=== PATIENT | male | born 1965 | race Two or more races ===

== ENCOUNTER 2016-12-31 08:27 | Observation (INO) | payer OTHER ==
[~2016-12-31 08:27] MED LIST: Buffered Lidocaine 1% SYR 3ML* 3 ML/SYR SYRINGE INTRADERM ONE; Dexamethasone IV* 4 MG/ML 1 ML (4 MG) IV SLOW PU ONE; Famotidine IV* 10 MG/ML 2 ML (20 mg) IV ONE
[2016-12-31] MEDS ORDERED: Famotidine IV* 10 MG/ML 2 ML (20 mg) ONE (08:42)
[2016-12-31] MEDS ORDERED: Dexamethasone IV* 4 MG/ML 1 ML (4 MG) ONE (08:42)
[2016-12-31] MEDS ORDERED: ceFAZolin 2 GM PREMIX (*) 2 GM/50 ML BAG IVPB ONE (08:42)
[2016-12-31] MEDS ORDERED: Propofol* 10 MG/ML 20 ML BTL IV PUSH ONE (10:05)
[2016-12-31] MEDS ORDERED: Lidocaine 2% PF * 5 ML VIAL ONE (10:05)
[2016-12-31] MEDS ORDERED: Rocuronium* 10 MG/ML VIAL ONE (10:06)
[2016-12-31] MEDS ORDERED: fentaNYL* 50 MCG/ML 5 ML VIAL (250 MCG VIAL) ONE (10:06)
[2016-12-31] MEDS ORDERED: Bacitracin IV* 50,000 UNITS INJ ONE (10:12)
[2016-12-31] MEDS ORDERED: Lidocain 1% EPI 1:100,000 * 30 ML MDV ONE (10:12)
[2016-12-31] MEDS ORDERED: Thrombin 5,000 UNITS* 1 APPLIC KIT - topical use - TOPICAL ONE (10:12)
[2016-12-31] MEDS ORDERED: KETAMINE HCL* 50 MG/ML 10 ML VIAL ONE (10:49)
[2016-12-31] MEDS ORDERED: Phenylephrine IV* 40 MCG/ML 10 ML SYRINGE ONE (10:51)
[2016-12-31] MEDS ORDERED: PROCHLORPERAZINE INJ 5 MG/ML 2 ML VIAL IV PRN (11:05)
[2016-12-31] MEDS ORDERED: Phenylephrine INJ* 10 MG/ML 1 ML VIAL (10 MG) ONE (11:12)
[2016-12-31] MEDS ORDERED: Ondansetron INJ* 2 MG/ML VIAL ONE (11:39)
[2016-12-31] MEDS ORDERED: EPHEDrine (Pressors)* 50 MG/ML VIAL ONE (11:39)
[2016-12-31] MEDS ORDERED: Magnesium Hydroxide LIQ* 30 ML UDC PO PRN (11:54)
[2016-12-31] MEDS ORDERED: Acetaminophen TAB* 325 MG PO PRN (11:54)
[2016-12-31] MEDS ORDERED: fentaNYL* 50 MCG/ML 2 ML VIAL (100 MCG VIAL) ONE ×2 (12:28→12:37)
[2016-12-31] MEDS: fentaNYL* 50 MCG/ML 2 ML VIAL (100 MCG VIAL) IV PRN ×4 (12:29→13:08)
[2016-12-31] MEDS ORDERED: Morphine INJ* 10 MG/ML 1 ML CARPUJECT ONE (12:37)
[2016-12-31] MEDS: Morphine INJ* 2 MG/ML 1 ML CARPUJECT IV PRN ×2 (12:39→13:02)
[2016-12-31] MEDS: oxyCODONE/Acetamin 5/325 MG* TAB PO PRN ×2 (12:44→12:51)
[2016-12-31] MEDS ORDERED: oxyCODONE/Acetamin 5/325 MG* TAB ONE (12:44)
[2016-12-31] MEDS ORDERED: HYDROmorphone INJ* 1 MG/ML CARPUJECT SYRINGE ONE ×3 (13:17→14:25)
[2016-12-31] MEDS: HYDROmorphone INJ* 1 MG/ML CARPUJECT SYRINGE IV SLOW PU PRN ×6 (13:19→15:04)
[2016-12-31] MEDS ORDERED: Lisinopril TAB* 10 MG PO ONE (14:00)
--- NOTE | 2016-12-31 14:19 | RAD ---
HISTORY: Posterior cervical discectomy COMPARISONS: November 24, 2016 VIEWS: 1, portable crosstable view of the cervical spine performed for localization during spinal surgery FINDINGS: A lateral crosstable view of the cervical spine performed intraoperatively at 11:11 AM demonstrates a metallic probe opposite of the C5 spinous process, counting from C2. IMPRESSION: LIMITED PORTABLE VIEW OF THE CERVICAL SPINE FOR LOCALIZATION DURING SPINAL SURGERY.
[2016-12-31] MEDS ORDERED: Metoprolol Tartrate IV* 1 MG/ML 5 ML VIAL ONE (14:36)
[2016-12-31] MEDS: HYDROcodone/ACETAMIN 5-325 MG* 1 TAB PO PRN ×2 (18:45→22:37)
[2016-12-31] MEDS ORDERED: QUEtiapine TAB* 300 MG PO SCH (21:00)
[2017-01-01] MEDS: HYDROcodone/ACETAMIN 5-325 MG* 1 TAB PO PRN ×2 (02:49→06:50)
--- NOTE | 2017-01-01 07:46 | PN ---
Progress Note - Progress Note SOAP: Subjective: []POD # 1 Arm pain relieved Complains of incisional pain Objective: []Minimal drain output Motor intact Assessment: [] Satis post op course Plan: []D/C today D/C instructions given
[2017-01-01 07:51] VITALS: BP 142/81
[2017-01-01] MEDS ORDERED: Nicotine PATCH 21 MG/24 HR* PATCH TRANSDERM SCH (09:00)
[2017-01-01] MEDS ORDERED: Lisinopril TAB* 10 MG PO SCH (09:00)
--- NOTE | 2017-01-01 13:31 | OP ---
OPERATIVE REPORT: DATE OF OPERATION: 12/31/16 DATE OF : 65 SURGEON: Ion Yost MD VERMIN EXTERMINATOR: ZBIGNIEW Kay ANESTHESIA: General. PRE-OP DIAGNOSIS: Herniated nucleus pulposus, C6-7 on the left. POST-OP DIAGNOSIS: Herniated nucleus pulposus, C6-7 on the left. OPERATIVE PROCEDURE: Posterior cervical partial hemilaminectomy, C6-7 on the left with diskectomy, C6-7 on the left with microdissection. DESCRIPTION OF PROCEDURE: After satisfactory general anesthesia was obtained, the patient was place d on the operating table in the prone position with the chest supported on chest rolls and the neck maintained in slight neck flexion utilizing Thompson headrest. The posterior cervical region was th en clipped, prepped, and draped in a sterile manner for posterior cervical laminectomy and a skin in cision outlined from C6 to C7. This incision was infiltrated with 1% Xylocaine with epinephrine, af ter which it was turned down sharply to the level of the cervical fascia. The fascia was divided al mindi the spinous processes from C5 to C7 and the paraspinal musculature stripped away from the left s terrance utilizing the periosteal elevator and monopolar cautery. An intraoperative x-ray was obtained v erifying the localization of the C5 spinous process, after which a partial hemilaminectomy was evelia ed out at the C6-7 level, utilizing a combination of the Midax Yves drill and Kerrison rongeurs. Lig amentum flavum was removed with the Kerrison and a generous foraminotomy carried out over the C7 ner ve root. At this point of the procedure, the operating microscope was brought into the field and th e remainder of the procedure was done under microscopic visualization. Utilizing microdissection, a bundant epidural venous structures were coagulated and divided. Projecting into the shoulder region of the exposure was a subcapsular disk herniation. An opening was made in the posterior longitudin al ligament and multiple fragments of disk were removed from beneath the nerve root. There was also noted to be a component of bony spur at this level as well. At the end of the decompression, a ner ve root will go ahead readily with the C7 nerve root. It was felt that a satisfactory decompression had been achieved. After assuring adequate hemostasis, the wound was thoroughly irrigated after wh ich a piece of Gelfoam was placed over the laminectomy defect. A drain was placed in the epidural s pace and tunneled out towards the left side. The fascia was then reapproximated with 0 Vicryl sutur e, the subcutaneous tissue was closed with 2 and 3-0 Vicryl suture and the skin closed with skin cli ps. The estimated blood loss was less than 50 cc and the final sponge, padding, and needle counts we re correct. The patient was taken to the recovery room, extubated, and in stable condition. [id number]/[facility] #: [id number]
[2017-01-01] MEDS ORDERED: Nicotine Patch Removal NOTE PATCH OFF SCH (21:00)
--- NOTE | 2017-01-13 01:47 | DS ---
DISCHARGE SUMMARY: DATE OF ADMISSION: 12/31/16 DATE OF DISCHARGE: 01/01/17 DISCHARGE DIAGNOSES: 1. Physical disc displacement, C6-C7 on the left. 2. Hypertension. SPECIAL PROCEDURE: Posterior cervical discectomy at C6-C7 on the left. HOSPITAL COURSE: This 51-year-old male was seen in the office with recurrent symptoms of a significant cervical radiculopathy to the left. He failed to improve with conservative treatments and was admitted at this time for elective surgical intervention. On the day of admission, he was taken to surgery where under general anesthesia, a posterior cervical discectomy at C6-C7 on the left operation was carried out. Postoperatively, he was feeling well. Pain is well controlled with oral pain medications. He was eating and drinking without difficulty. He was ambulating independently. On the first postoperative day, he was discharged home to the care of his family. Discharge instructions including wound care and activity level were discussed with the patient and provided. He will be seen in office in approximately 7 to 10 days with followup and staple removal. DISCHARGE MEDICATIONS: Cyclobenzaprine 10 mg one tab by mouth three times daily as needed for pain. ZBIGNIEW CASTLE [id number]/[facility] #: [id number] [facility]
== END 2017-01-01 09:20 | disposition home or self-care (01) ==
LOC: OR 08:27 → SSU 16:00 → UNDOADMOB 16:00
PROVIDERS: ADMIT Neurological Surgery; ATTEND Neurological Surgery
PROC: 01N10ZZ Release Cervical Nerve, Open Approach (ICD-10-PCS; 2016-12-31)
PROC: 0RB30ZZ Excision of Cervical Vertebral Disc, Open Approach (ICD-10-PCS; principal; 2016-12-31 10:00)
DX: M50.123 Cervical disc disorder at C6-C7 level with radiculopathy (principal); I10 Essential (primary) hypertension; Z79.899 Other long term (current) drug therapy; F17.210 Nicotine dependence, cigarettes, uncomplicated
CPT/HCPCS: 72020; 88304; 96374; 96375; A9270-GY; G0378; J0690; J1100; J1170; J2270; J2405; J2704; J3010; J3490

== ENCOUNTER 2019-02-14 11:43 | Day surgery (SDC) | payer BC, OTHER ==
--- NOTE | 2019-02-07 03:28 | HP ---
CC: Dr. Elias Craft, [facility] Office * ADMISSION HISTORY AND PHYSICAL: DATE OF ADMISSION: 02/14/19 ATTENDING SURGEON: Dr. Wayne Argueta * (DICTATED BY ZBIGNIEW VU) CHIEF COMPLAINT: Umbilical hernia. HISTORY OF PRESENT ILLNESS: This is a 53-year-old male who had had what sounds like a longstanding asymptomatic umbilical hernia. Beginning about a year ago, this became larger and symptomatic. 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 He has not had anything to suggest incarceration or strangulation. Pain is limited to the area of the umbilicus and extending somewhat to the superior left of the umbilicus. He has had a prior open left inguinal herniorrhaphy in 2009. He was seen in the office by Dr. Argueta on 07/29/19, at which time exam confirmed the presence of a fat incarcerated tender umbilical hernia. Recommendation was made for repair and Dr. Argueta discussed with him the indications, risks, benefits and alternatives. The patient was unable to have the repair done at that time and deferred it to the present time. He has not had any significant interval symptoms or changes. PAST MEDICAL HISTORY: 1. Hypertension. 2. Osteoarthritis primarily the back and hips. 3. Insomnia. 4. GERD. 5. Anxiety and depression. PAST SURGICAL HISTORY: Previous surgeries have included: 1. Open left inguinal herniorrhaphy with mesh in 2009. 2. Posterior cervical diskectomy in 2017 (he states that he did not improve after the disk surgery). CURRENT MEDICATIONS: 1. Quetiapine 300 mg q.h.s. 2. Bisoprolol/hydrochlorothiazide 5-6.25 two tablets q.a.m. 3. Amlodipine/benazepril 5-20 mg 2 tablets q.a.m. 4. Omeprazole 20 mg q. day. 5. Gabapentin 100 mg q. day. 6. Paroxetine 10 mg q. day. 7. Aleve 2 tablets once daily p.r.n. pain (does not use daily). DRUG ALLERGIES: None known. FAMILY HISTORY: Negative for anesthesia problems, bleeding, or clotting disorders, though the patient has not had much contact with his family in recent years. SOCIAL HISTORY: The patient lives with his girlfriend. He is employed as a toolroom machinist/polisher. He is a smoker one-half pack per day for the past 38 years. We did discuss the benefits of smoking cessation. He drinks on average 3 to 4 beers per day, but sometimes as much as 18 on hot summer days. He occasionally smokes marijuana recreationally and was recently approved for medical marijuana though has not initiated that. He denies any other recreational drug use. REVIEW OF SYSTEMS: General: No recent constitutional symptoms or acute illnesses though he does state that his food intake has been less because of increased symptoms related to the hernia and he estimates weight loss of 5 to 6 pounds. HEENT: Some chronic dental problems but nothing acute. Cardiovascular : No recent history of chest pain. He did undergo a stress echo possibly 8 to 10 years ago, which he states was a normal study. Respiratory: No history of shortness of breath or chronic cough. GI: GERD symptoms, well controlled by dietary measures and omeprazole. No lower GI symptoms. He has not had any screening for colorectal cancer though is encouraged to discuss this with his PCP. : No problems reported. Endocrine: No diabetes or thyroid dysfunction. PHYSICAL EXAMINATION GENERAL: Well-nourished, well-developed male, in no acute distress. VITAL SIGNS: Height 5 feet 11 inches, weight 225 pounds, blood pressure 150/90 , pulse 72, respirations 18. HEENT: Pupils equal, round, and reactive. EOMs intact. No conjunctival pallor. Oropharynx: Teeth in fairly good repair. No intraoral lesions. NECK: No lymphadenopathy, thyromegaly, or masses. No supraclavicular lymphadenopathy. LUNGS: Clear to auscultation. No wheezes. HEART: Regular rate and rhythm. No murmur noted. ABDOMEN: A small visible umbilical bulge. The abdomen is soft, nontender with the exception some mild tenderness to deep palpation at the umbilicus, where there is a 1 to 2 cm defect by palpation, which feels semi-reducible. No other palpable masses. No obvious inguinal hernias. No palpable hepatosplenomegaly. GENITALIA: Not examined. RECTAL: Not done. BACK: No spinous process or CVA tenderness. EXTREMITIES: No edema. NEUROLOGICAL: Grossly intact. SKIN: Warm and dry. No suspicious rashes or lesions noted. IMPRESSION: Umbilical hernia. PLAN: Open repair of umbilical hernia with mesh. SOHEILA NUNEZ, ZBIGNIEW [id number]/[facility] #: [id number] [facility] HOSPITALAshish
[~2019-02-14 11:43] MED LIST changes: -Buffered Lidocaine 1% SYR 3ML* 3 ML/SYR SYRINGE INTRADERM ONE; +Buffered Lidocaine 1% SYRIN* 1 ML/SYRINGE INTRADERM ONE; +Lactated Ringers 1000 ML Bag* 1,000 ML IV SCH
[2019-02-14] MEDS ORDERED: Dexamethasone IV* 4 MG/ML 1 ML (4 MG) ONE (11:57)
[2019-02-14] MEDS ORDERED: Buffered Lidocaine 1% SYRIN* 1 ML/SYRINGE INTRADERM ONE (11:58)
[2019-02-14] MEDS ORDERED: ceFAZolin 2 GM in NS PREMIX(*) 2 GM/100 ML BAG IVPB ONE (11:58)
[2019-02-14] MEDS ORDERED: Famotidine IV* 10 MG/ML 2 ML (20 mg) ONE (11:58)
[2019-02-14] MEDS ORDERED: fentaNYL* 50 MCG/ML 2 ML VIAL (100 MCG VIAL) ONE ×2 (12:36→14:32)
[2019-02-14] MEDS ORDERED: Midazolam* 1 MG/ML 2 ML VIAL (2 MG) ONE (12:37)
[2019-02-14] MEDS ORDERED: Propofol* 10 MG/ML 20 ML BTL ONE ×3 (14:13→14:45)
--- NOTE | 2019-02-14 14:51 | OP ---
Operative Report - Blank - Operative Report Date of Operation: 02/14/19 Note: Brief Operative Note Preop Dx: umbilical hernia Postop Dx: same Procedure: open repair umbilical hernia w/ mesh Anesthesia: local MAC Surgeon: Ellie Police Liaison: ZBIGNIEW Balderas Fluids: 500 ml RL EBL: < 10 ml Specimen: none Drains: none Findings: dictated
[2019-02-14] MEDS ORDERED: Naloxone* 0.4 MG/ML 1 ML VIAL IV PRN (15:03)
[2019-02-14] MEDS ORDERED: fentaNYL* 50 MCG/ML 2 ML VIAL (100 MCG VIAL) IV PRN (15:03)
[2019-02-14] MEDS ORDERED: Ondansetron INJ* 2 MG/ML VIAL IV PRN (15:03)
[2019-02-14 16:32] VITALS: BP 156/109
--- NOTE | 2019-02-16 13:44 | OP ---
CC: Elias Craft MD * DATE OF OPERATION: 02/14/19 - SDS DATE OF : 65 SURGEON: Wayne Argueta MD CELLULOSE INSULATION HELPER: None. ANESTHESIOLOGIST: Dr. Bain ANESTHESIA: Local MAC. PRE-OP DIAGNOSIS: Umbilical hernia. POST-OP DIAGNOSIS: Umbilical hernia. OPERATIVE PROCEDURE: Open repair of umbilical hernia with mesh. ESTIMATED BLOOD LOSS: Minimal. IV FLUIDS: Crystalloids. SPECIMEN: None. DRAINS: None. COMPLICATIONS: None. COUNTS: The instrument, needle, and sponge counts were correct. DESCRIPTION OF PROCEDURE: The patient was brought to the operating room and placed on the table supine. Sequential compression devices were placed on both lower extremities. Intravenous sedation was administered. He was prepped and draped in the usual sterile fashion and received appropriate intravenous antibiotics. Local anesthetic was infiltrated as a field block in the umbilical region. A curvilinear infraumbilical incision was created and the umbilical stalk was dissected off the anterior abdominal wall. Umbilical hernia containing fat was reduced. Hernia sac remained intact. The preperitoneal space was dissected out using combination of cautery and blunt dissection. The defect was 2 cm. Repair was performed with a Ventralex small size patch, which was placed into the peritoneal space and sutured through the inferior and superior fascial components with 0 Ethibond. The fascial defect was closed transversely with the same suture using series of [id number] sutures to complete the closure. The umbilical stalk was then reapproximated to the anterior abdominal wall with 3-0 Vicryl and then skin was closed with two layers of 3-0 Vicryl for the deep dermis and 4-0 Monocryl for the skin edge. Steri-Strips and the compression dressing were applied. The patient tolerated the procedure well. [id number]/[facility] #: [id number] [facility]
== END 2019-02-14 16:15 | disposition home or self-care (01) ==
LOC: OR 11:43
PROVIDERS: ATTEND Surgery
DX: K42.9 Umbilical hernia without obstruction or gangrene (principal); Z72.0 Tobacco use; M19.90 Unspecified osteoarthritis, unspecified site; F41.8 Other specified anxiety disorders; K21.9 Gastro-esophageal reflux disease without esophagitis; I10 Essential (primary) hypertension; Z68.31 Body mass index [BMI] 31.0-31.9, adult; R73.03 Prediabetes
CPT/HCPCS: C1781; J0690; J1100; J2250; J2704; J3010